=== PATIENT | male | born 2000 | race Caucasian/White ===

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

== ENCOUNTER 2019-05-16 08:25 | Emergency (ER) | payer MEDICAID ==
[2019-05-16] MEDS ORDERED: CEFTRIAXONE INJ 1000 MG VIAL IM ONE (09:23)
[2019-05-16] MEDS ORDERED: LIDOCAINE 1% INJ-PF (10 MG/ML) 30 ML SDV INJ ONE (09:23)
--- NOTE | 2019-05-16 09:24 | ER Document Report ---
HPI - HPI Time Seen by Provider: 05/16/19 09:08 Pain Level: 5 Notes: Patient is a 18-year-old male with no significant past medical history who presents complaining of possible abscess or infection near the base of his penis has been present for 5 days. Patient has noticed some purulent discharge from the area. He has noticed redness and swelling as well. He is able to eat and drink without difficulty otherwise. He is urinating normally and having normal bowel movements. No history of MRSA. Patient has no concern of STD or STI and has not had any dysuria or discharge. Denies any headache, fever, neck pain, URI, sore throat, chest pain, palpitations, syncope, cough, shortness of breath, wheeze, dyspnea, abdominal pain, nausea/vomiting/diarrhea, urinary retention, dysuria, hematuria, loss of control of bowel or bladder, numbness/tingling, saddle anesthesia, muscle paralysis/weakness. - ROS Systems Reviewed and Negative: Yes All other systems reviewed and negative Past Medical History - Social History Smoking Status: Current Every Day Smoker Frequency of alcohol use: None Drug Abuse: None Family History: Reviewed & Not Pertinent Patient has suicidal ideation: No Patient has homicidal ideation: No - Past Medical History Cardiac Medical History: Denies: Hx Coronary Artery Disease, Hx Heart Attack, Hx Hypertension Pulmonary Medical History: Denies: Hx Asthma, Hx Bronchitis, Hx COPD, Hx Pneumonia Neurological Medical History: Denies: Hx Cerebrovascular Accident, Hx Seizures Renal/ Medical History: Denies: Hx Peritoneal Dialysis Musculoskeletal Medical History: Denies Hx Arthritis Psychiatric Medical History: Reports: Hx Attention Deficit Hyperactivity Disorder Traumatic Medical History: Reports: Hx Fractures - Nondisplaced fractures of both wrists,, displaced fracture of right wrist Past Surgical History: Reports: Hx Orthopedic Surgery - rigth wrist reduction under fluoroscopy in the operating room - Immunizations Immunizations up to date: Yes Hx Diphtheria, Pertussis, Tetanus Vaccination: Yes Vertical Provider Document - CONSTITUTIONAL Agree With Documented VS: Yes Notes: PHYSICAL EXAMINATION: GENERAL: Well-appearing, well-nourished and in no acute distress. LUNGS: Breath sounds clear to auscultation bilaterally and equal. No wheezes rales or rhonchi. HEART: Regular rate and rhythm without murmurs, rubs, gallops. ABDOMEN: Soft, nontender, nondistended abdomen. No guarding, no rebound. Normal bowel sounds present. No CVA tenderness bilaterally. : uncircum. No urethral discharge. There is a noted purulent small abscess to the base of penis ventral side with mild induration surrounding and erythema. + mild left inguinal tenderness and lymphadenopathy noted. No testicular tenderness or transverse lie. No other streaks. Musculoskeletal: FROM to passive/active. Strength 5+/5. Extremities: No cyanosis, clubbing, or edema b/l. Peripheral pulses 2+. Capillary refill less than 3 seconds. NEUROLOGICAL: Normal speech, normal gait. Normal sensory, motor exams PSYCH: Normal mood, normal affect. SKIN: see above - INFECTION CONTROL TRAVEL OUTSIDE OF THE [place] IN LAST 30 DAYS: No Course - Re-evaluation Re-evalutation: 05/16/19 09:36 Dr. Aamya diego'd the patient as well and agrees with assessment/dispo/plan: Patient is an afebrile, well-hydrated, 18-year-old male who presents to the emergency department with an abscess to the base of the penis needing incision and drainage. Vitals are acceptable without significant tachycardia, tachypnea, or hypoxia. PE is otherwise unremarkable. Patient is nontoxic-appearing and is tolerating p.o. without difficulty. A basic incision and drainage was performed successfully by an 11 blade without any complications. Wound dressing was p laced and wound instructions reviewed. Wound culture was obtained. No further labs or imaging warranted. Pt was given 1g rocephin and toradol today. Rx for cleocin at home. Low suspicion for any sepsis, meningitis, SJS, or other systemic emergent condition at this time. Patient to monitor symptoms for any acute changes and seek medical attention if so. Recheck with your PCM in 1-2 days. Return to the ED with any worsening/concerning symptoms as reviewed. Patient is in agreement. - Vital Signs Vital signs: Temp Pulse Resp BP Pulse Ox 98.0 F 94 H 16 146/88 H 99 05/16/19 08:28 05/16/19 08:28 05/16/19 08:28 05/16/19 08:28 05/16/19 08:28 Procedures - Incision and Drainage Penis Type: Simple Blade size: 11 I&D procedure: Chlorprep applied, Sterile dressing applied Incision Method: Incision made by scalpel Amount/type of drainage: scant purulent Discharge - Discharge Clinical Impression: Abscess Condition: Stable Disposition: HOME, SELF-CARE Instructions: Abscess ([facility]) Additional Instructions: Do not shower or bathe for 24 hours. After 24 hours you may shower but no submersion of the wound under water. Keep the original dressing on the wound for 24 hours unless the drainage soaks through. Change the dressing daily thereafter and use a small amount of triple antibiotic ointment over the open wound. See your PCM in 1-2 days for recheck*. Epsom salt soaks. Monitor for any signs of worsening pain or redness, streaks, and/or fever. Return to the ED if noticing any of the above symptoms or as needed. Take medications as directed. Prescriptions: Clindamycin HCl [Cleocin 300 mg Capsule] 300 mg PO TID #30 capsule Forms: Elevated Blood Pressure Referrals: NATHANAEL BROWN DO [Primary Care Provider] - 05/17/19
[2019-05-16] MEDS ORDERED: KETOROLAC TROMETHAMINE 60 MG/2 ML SDV IM ONE (09:34)
[2019-05-16 10:02] VITALS: BP 131/73
== END 2019-05-16 10:02 | disposition home or self-care (01) ==
LOC: ER 08:25
DX: N48.21 Abscess of corpus cavernosum and penis (principal); R59.0 Localized enlarged lymph nodes; F17.200 Nicotine dependence, unspecified, uncomplicated
CPT/HCPCS: 99283; 96374; 96375; 87070; 87205; 87075; 87077; 87186; 10060; J1885; J3490; J0696

== ENCOUNTER → 2020-07-04 | Outpatient (CLI) | payer MEDICAID ==
[2020-07-04 13:38] LABS: ABSOLUTE EOSINOPHILS # (AUTO) 0.1 10^3/uL (0.0-0.6); ABSOLUTE LYMPHOCYTES (AUTO) 1.5 10^3/uL (0.5-4.7); ABSOLUTE MONOCYTES (AUTO) 0.3 10^3/uL (0.1-1.4); ABSOLUTE NEUT (AUTO) 2.7 10^3/uL (1.7-8.2); BASOPHILS % (AUTO) 0.9 % (0-2); EOSINOPHILS % (AUTO) 2.8 % (0-6); HEMOGLOBIN 15.7 g/dL (13.5-17.0); LYMPHOCYTES % (AUTO) 32.9 % (13-45); MEAN CORPUSCULAR HEMOGLOBIN 30.1 pg (27.0-33.4); MEAN CORPUSCULAR HGB CONC 34.8 g/dL (32.0-36.0); MEAN CORPUSCULAR VOLUME 86 fl (80-97); PLATELET COUNT 306 10^3/uL (150-450); RED BLOOD COUNT 5.21 10^6/uL (4.35-5.55); SEGMENTED NEUTROPHILS % (AUTO) 56.4 % (42-78); TOTAL CELLS COUNTED % (AUTO) 100 %; WHITE BLOOD COUNT 4.7 10^3/uL (4.0-10.5)
[2020-07-05 06:37] LABS: HEPATITS B SURFACE ANTIGEN Negative (Negative)
[2020-07-05 06:49] LABS: HEPATITIS C VIRUS ANTIBODY <0.1 s/co ratio (0.0-0.9)
[2020-07-05 09:51] LABS: CYTOMEGALOVIRUS IGG AB >10.00 U/mL (0.00-0.59); CYTOMEGALOVIRUS IGM AB <30.0 AU/mL (0.0-29.9)
[2020-07-05 22:36] LABS: ROCKY MTN SPOTTED FEV IGG EIA Negative (Negative)
[2020-07-06 06:54] LABS: EPSTEIN BARR VCA IGM AB <36.0 U/mL (0.0-35.9); ROCKY MTN SPOTTED FEVER IGM AB 0.21 index (0.00-0.89)
== END ==
LOC: OD 12:33
PROVIDERS: ATTEND Surgery
DX: R59.1 Generalized enlarged lymph nodes (principal)
CPT/HCPCS: 36415; 80074; 85025; 86644; 86664; 86665; 86757

== ENCOUNTER 2020-09-20 19:43 | Emergency (ER) | payer MEDICAID ==
[2020-09-20] MEDS ORDERED: METHYLPREDNISOLONE INJ 125 MG/2 ML SDV IV ONE (19:54)
[2020-09-20] MEDS ORDERED: NORMAL SALINE 1000 ML 1,000 ML IV ONE (19:54)
[2020-09-20] MEDS ORDERED: DIPHENHYDRAMINE HCL 50 MG/ML VIAL IV ONE (19:54)
[2020-09-20] MEDS ORDERED: FAMOTIDINE INJ/PF 20 MG/2 ML SDV IV ONE (19:54)
--- NOTE | 2020-09-20 19:55 | ER Document Report ---
ED Medical Screen (RME) - General Stated Complaint: POSSIBLE ALLERGIC REACTION Time Seen by Provider: 09/20/20 19:48 Primary Care Provider: VIGNESH VICTORIA MD [Primary Care Provider] - Follow up as needed Notes: Patient presents with multiple large urticarial lesions distributed generally. Patient states he has been having episodes of these lesions off and on since [place] although presently has been having symptoms for the past week. Patient does report nausea and lightheadedness. Patient also complains of left upper quadrant abdominal discomfort. Patient denies any cough or vomiting. Patient denies any new foods medications or detergents. I have greeted and performed a rapid initial assessment of this patient. A comprehensive ED assessment and evaluation of the patient, analysis of test results and completion of the medical decision making process will be conducted by additional ED providers. TRAVEL OUTSIDE OF THE [place] IN LAST 30 DAYS: No - Related Data Allergies/Adverse Reactions: adhesive [Adhesive] Allergy (Verified 05/16/19 08:26) Past Medical History - Past Medical History Cardiac Medical History: Denies: Hx Coronary Artery Disease, Hx Heart Attack, Hx Hypertension Pulmonary Medical History: Denies: Hx Asthma, Hx Bronchitis, Hx COPD, Hx Pneumonia Neurological Medical History: Denies: Hx Cerebrovascular Accident, Hx Seizures Renal/ Medical History: Denies: Hx Peritoneal Dialysis Musculoskeltal Medical History: Denies Hx Arthritis Psychiatric Medical History: Reports: Hx Attention Deficit Hyperactivity Disorder Traumatic Medical History: Reports: Hx Fractures - Nondisplaced fractures of both wrists,, displaced fracture of right wrist Past Surgical History: Reports: Hx Orthopedic Surgery - rigth wrist reduction under fluoroscopy in the operating room - Immunizations Immunizations up to date: Yes Hx Diphtheria, Pertussis, Tetanus Vaccination: Yes Physical Exam - Vital signs Vitals: Temp Pulse Resp BP Pulse Ox 98.4 F 119 H 18 131/82 H 100 09/20/20 19:48 09/20/20 19:48 09/20/20 19:48 09/20/20 19:48 09/20/20 19:48 - General General appearance: Alert In distress: None Notes: Tachycardia, multiple urticarial lesions distributed generally, no angioedema Course - Vital Signs Vital signs: Temp Pulse Resp BP Pulse Ox 98.4 F 119 H 18 131/82 H 100 09/20/20 19:48 09/20/20 19:48 09/20/20 19:48 09/20/20 19:48 09/20/20 19:48 Doctor's Discharge - Discharge Referrals: VIGNESH VICTORIA MD [Primary Care Provider] - Follow up as needed
[2020-09-20 20:31] LABS: ABSOLUTE EOSINOPHILS # (AUTO) 0.1 10^3/uL (0.0-0.6); ABSOLUTE LYMPHOCYTES (AUTO) 2.8 10^3/uL (0.5-4.7); ABSOLUTE MONOCYTES (AUTO) 0.8 10^3/uL (0.1-1.4); ABSOLUTE NEUT (AUTO) 8.4 10^3/uL (1.7-8.2); BASOPHILS % (AUTO) 0.3 % (0-2); EOSINOPHILS % (AUTO) 0.5 % (0-6); HEMATOCRIT 44.6 % (37.9-51.0); HEMOGLOBIN 15.6 g/dL (13.5-17.0); MEAN CORPUSCULAR HGB CONC 34.9 g/dL (32.0-36.0); MEAN CORPUSCULAR VOLUME 83 fl (80-97); MONOCYTES % (AUTO) 6.9 % (3-13); PLATELET COUNT 350 10^3/uL (150-450); RED BLOOD COUNT 5.37 10^6/uL (4.35-5.55); RED CELL DISTRIBUTION WIDTH 12.7 % (11.5-14.0); SEGMENTED NEUTROPHILS % (AUTO) 69.3 % (42-78); TOTAL CELLS COUNTED % (AUTO) 100 %; WHITE BLOOD COUNT 12.1 10^3/uL (4.0-10.5)
[2020-09-20 20:39] LABS: ALBUMIN 4.1 g/dL (3.5-5.0); ALKALINE PHOSPHATASE 81 U/L (38-126); ANION GAP 5 (5-19); ASPARTATE AMINO TRANSFERASE 17 U/L (17-59); BILIRUBIN,DIRECT 0.2 mg/dL (0.0-0.4); BILIRUBIN,TOTAL 0.5 mg/dL (0.2-1.3); BLOOD UREA NITROGEN 14 mg/dL (7-20); CALCIUM 9.8 mg/dL (8.4-10.2); CARBON DIOXIDE 27 mmol/L (22-30); CHLORIDE 105 mmol/L (98-107); GLUCOSE 95 mg/dL (75-110); TOTAL PROTEIN 6.9 g/dL (6.3-8.2)
[2020-09-20 22:29] VITALS: BP 130/78
--- NOTE | 2020-09-20 22:29 | ER Document Report ---
Entered by NATALY DOOLEY SCRIBE 09/20/20 1390 Acting as scribe for:JOHANNA RINCON IV, MD ED Allergic Reaction - General Chief Complaint: Hives Stated Complaint: POSSIBLE ALLERGIC REACTION Time Seen by Provider: 09/20/20 19:48 Primary Care Provider: NATHANAEL BROWN DO [NO LOCAL MD] - 09/23/20 Mode of Arrival: Ambulatory Information source: Patient Notes: This 20-year-old male patient presents to the emergency department today with complaints of an allergic reaction. Patient reports that he first noticed this the day after Mihir and it would come and go. He reports that this current allergic reaction has been present for 2 weeks. Patient reports that he thinks it might be the detergent that his girlfriend uses but he has not changed it yet. Patient was seen once for this and he was given an injection of steroids which seemed to help for about a day and then it came back. He denies any shortness of breath or sensation that his throat is closing. He does have an EpiPen from his prior allergic reaction. TRAVEL OUTSIDE OF THE [place] IN LAST 30 DAYS: No - Related Data Allergies/Adverse Reactions: adhesive [Adhesive] Allergy (Verified 05/16/19 08:26) Home Medications: adderall. klonodine. atarax Past Medical History - General Information source: Patient - Social History Smoking Status: Current Every Day Smoker Cigarette use (# per day): Yes Chew tobacco use (# tins/day): No Frequency of alcohol use: None Drug Abuse: None Lives with: Family Family History: Reviewed & Not Pertinent Patient has homicidal ideation: No Psychiatric Medical History: Reports: Hx Attention Deficit Hyperactivity Disorder Traumatic Medical History: Reports: Hx Fractures - Nondisplaced fractures of both wrists,, displaced fracture of right wrist Past Surgical History: Reports: Hx Orthopedic Surgery - rigth wrist reduction under fluoroscopy in the operating room - Immunizations Immunizations up to date: Yes Hx Diphtheria, Pertussis, Tetanus Vaccination: Yes Review of Systems - Review of Systems Constitutional: No symptoms reported EENT: No symptoms reported Cardiovascular: No symptoms reported Respiratory: No symptoms reported Gastrointestinal: No symptoms reported Genitourinary: No symptoms reported Male Genitourinary: No symptoms reported Musculoskeletal: No symptoms reported Skin: See HPI, Change in color, Lesions, Rash Hematologic/Lymphatic: No symptoms reported Neurological/Psychological: No symptoms reported -: Yes All other systems reviewed and negative Physical Exam - Vital signs Vitals: Temp Pulse Resp BP Pulse Ox 98.4 F 119 H 18 131/82 H 100 09/20/20 19:48 09/20/20 19:48 09/20/20 19:48 09/20/20 19:48 09/20/20 19:48 - Notes Notes: Physical Exam: General: Alert, appears well. HEENT: Normocephalic. Atraumatic. PERRL. Extraocular movements intact. Posterior oropharynx is clear. No uvula edema or throat swelling. Neck: Supple. Non-tender. Respiratory: No respiratory distress. Clear and equal breath sounds bilaterally. Cardiovascular: Regular rate and rhythm. Abdominal: Normal Inspection. Non-tender. No distension. Normal Bowel Sounds. Back: No gross abnormalities. Extremities: Moves all four extremities. Upper extremities: Normal inspection. Normal ROM. Lower extremities: Normal inspection. No edema. Normal ROM. Neurological: Normal cognition. AAOx4. Normal speech. Psychological: Normal affect. Normal Mood. Skin: Diffuse urticarial rash consistent with allergic reaction. Course - Re-evaluation Re-evalutation: 09/20/20 22:00 Differential diagnosis: Allergic reaction to food, allergic reaction to detergents, atopic dermatitis, cholinergic urticaria MDM: Patient has a EpiPen that is good until January 2021 patient was encouraged to keep the EpiPen on his person at all times in case he does have a recurrence of symptoms and has associated shortness of breath or did other difficulty breathing. I am going to put the patient on prednisone 60 mg a day for 4 days and I encouraged him to follow-up with his PCP to see about arranging a referral to a color control operator to find the etiology of his allergic reaction. Results of ED MSE discussed with patient and patient's mother. All questions were answered prior to discharge. Emergency signs and symptoms, reasons to return to the emergency department discussed with patient and patient's mother. - Vital Signs Vital signs: Temp Pulse Resp BP Pulse Ox 98.1 F 119 H 14 130/78 H 99 09/20/20 22:19 09/20/20 19:48 09/20/20 22:19 09/20/20 22:19 09/20/20 22:18 - Laboratory Results Result Diagrams: 09/20/20 20:13 09/20/20 20:13 Laboratory Results Interpreted: 09/20/20 20:13 WBC 12.1 H Absolute Neuts (auto) 8.4 H Critical Laboratory Results Reviewed: No Critical Results - Radiology Results Critical Radiology Results Reviewed: No Critical Results Discharge - Discharge Clinical Impression: Allergic reaction Qualifiers: Encounter type: initial encounter Qualified Code(s): T78.40XA - Allergy, unspecified, initial encounter Condition: Stable Disposition: HOME, SELF-CARE Additional Instructions: Return to the Emergency Department without delay if any worse. HOME CARE INSTRUCTIONS & INFORMATION: Thank you for choosing us for your medical needs. We hope you're satisfied with the care you received. After you leave, you must properly care for your problem and, at the same time, observe its progress. Any condition can change. Some illnesses can change rapidly over hours or days. If your condition worsens, return to the Emergency Department o r see your physician promptly. ABOUT YOUR X-RAYS AND EKG'S: If you had an EKG or X-rays taken, they have been read by the Emergency Physician. The X-rays and EKG's will also be read by a Radiologist or Cylinder Press Feeder within 24 hours. If discrepancies are noted, you will be notified by telephone. Please be certain the ED has a correct telephone number & address where you can be reached. Also, realize that some fractures or abnormalities do not show up on initial X-rays. If your symptoms continue, see your physician. ABOUT YOUR LABORATORY TEST: If you had laboratory tests, the results have been reviewed by the Emergency Physician. Some test results (for example cultures) may not be available for several days. You will be contacted if any test result shows you need additional treatment. Please be certain the ED has a correct telephone number and address where you can be reached. ABOUT YOUR MEDICATIONS: You will receive instructions on how to take your medicine on the prescription label you receive. Additional information may be provided by the Pharmacy. If you have questions afterwards, call the ED for clarification or further instructions. Some prescribed medications may cause drowsiness. Do not perform tasks such as driving a car or operating machinery without consulting your Pharmacist. If you feel you need a refill of pain medication, your condition will need re-evaluation. Please do not call for a refill of any medication. ABOUT YOUR SIGNATURE: Signature of this document acknowledges to followin. Understanding that you received emergency treatment and that you may be released before al medical problems are known or treated. Please be certain the ED has a correct phone number & address where you can be reached. 2. Acknowledgement that you will arrange for follow-up care as recommended. 3. Authorization for the Emergency Physician to provide information to your follow-up Physician in order to maximize your care. AT ANY TIME, IF YOUR SYMPTOMS CHANGE SIGNIFICANTLY OR WORSEN OR YOU DEVELOP NEW SYMPTOMS, RETURN TO THE EMERGENCY DEPARTMENT IMMEDIATELY FOR RE-EVALUATION. OUR GOAL IS TO PROVIDE EXCELLENT MEDICAL CARE! WE HOPE THAT WE HAVE MET YOUR EXPECTATIONS DURING YOUR EMERGENCY DEPARTMENT VISIT AND THAT YOU FEEL YOU HAVE RECEIVED EXCELLENT CARE! Prescriptions: Prednisone [Deltasone 20 mg Tablet] 3 tab PO DAILY 4 Days #12 tablet Referrals: NATHANAEL BROWN DO [NO LOCAL MD] - 09/23/20 I personally performed the services described in the documentation, reviewed and edited the documentation which was dictated to the scribe in my presence, and it accurately records my words and actions.
== END 2020-09-20 22:32 | disposition home or self-care (01) ==
LOC: ER 19:43
DX: L50.9 Urticaria, unspecified (principal); F17.210 Nicotine dependence, cigarettes, uncomplicated
CPT/HCPCS: 99284; 96361; 96374; 96375; 36415; 85025; 80053; J1200; J2930; J7030; S0028